=== PATIENT | female | born 1960 | race African-American/Black ===

== ENCOUNTER 2016-09-24 16:44 | Emergency (ER) | payer BC ==
[2016-09-24] MEDS ORDERED: ACETAMINOPHEN 325 MG TABLET PO ONE (18:12)
--- NOTE | 2016-09-24 18:12 | ER Document Report ---
ED Medical Screen (RME) - General Chief Complaint: Chest Congestion Stated Complaint: COUGH Time seen by provider: 18:08 Mode of Arrival: Ambulatory Information source: Patient Notes: 56-year-old female with cough and congestion since Saturday. She had similar illness 1 week ago. Temperature is 100.4 pulses 118 and pulse ox is 96%. lungs clear at triage. I have greeted and performed a rapid initial assessment of this patient. A comprehensive ED assessment, evaluation of the patient, analysis of test results , and completion of the medical decision making process will be conducted by additional ED providers. TRAVEL OUTSIDE OF THE [place] IN LAST 30 DAYS: No - Related Data Allergies/Adverse Reactions: ampicillin [Ampicillin] Allergy (Intermediate, Verified 11/19/12 18:08) Hives latex [Latex] Allergy (Verified 11/19/12 18:08) gives funny feeling adhesive tape [Adhesive Tape] Adverse Reaction (Intermediate, Verified 11/19/12 18:08) rash Past Medical History - Past Medical History Cardiac Medical History: Reports: Hx Hypertension Renal/ Medical History: Denies: Hx Peritoneal Dialysis Past Surgical History: Reports: Hx Bowel Surgery - small bowel resection, Hx Cholecystectomy, Hx HysterectomyComment Only: Hx Abdominal Surgery - hernia repair x 2 - Immunizations Hx Diphtheria, Pertussis, Tetanus Vaccination: No Physical Exam - Vital signs Vitals: Temp Pulse Resp BP Pulse Ox 100.4 F 118 H 18 153/99 H 96 09/24/16 16:54 09/24/16 16:54 09/24/16 16:54 09/24/16 16:54 09/24/16 16:54 Course - Vital Signs Vital signs: Temp Pulse Resp BP Pulse Ox 100.4 F 118 H 18 153/99 H 96 09/24/16 16:54 09/24/16 16:54 09/24/16 16:54 09/24/16 16:54 09/24/16 16:54
--- NOTE | 2016-09-24 19:38 | ER Document Report ---
ED General - General Chief Complaint: Chest Congestion Stated Complaint: COUGH Time seen by provider: 19:33 Mode of Arrival: Ambulatory Information source: Patient Notes: 56-year-old female claims a 2 week history of cough and feels as if it should be productive but she is not able to get anything up. She reports after but a week and half she felt better and then 3 days ago had return of the symptoms. She denies fever, chills, nausea, vomiting, earache, sore throat, chest pain, abdominal pain, back pain, swelling to extremities, or syncope. Physical Exam: General: Alert, appears well. HEENT: Normocephalic. Atraumatic. PERRLA. Extraocular movements intact. Oropharynx clear. Neck: Supple. Non-tender. Respiratory: No respiratory distress. Scattered rhonchi bilateral breath sounds equal no accessory muscle use Cardiovascular: Regular rate and rhythm. Abdominal: Normal Inspection. Soft, non-tender. No guarding rebound rigidity No distension. Normal Bowel Sounds. Back: Non-tender. No deformity or step off. Extremities: Moves all four extremities. Upper extremities: Normal inspection. Non-tender. Normal color. Normal ROM. Normal temperature. Lower extremities: Normal inspection. Non-tender. No edema. Normal color. Normal ROM. Normal temperature. Neurological: Speech clear mentation normal Psychological: Normal affect. Normal Mood. Skin: Warm. Dry. Normal color. TRAVEL OUTSIDE OF THE [place] IN LAST 30 DAYS: No - Related Data Allergies/Adverse Reactions: ampicillin [Ampicillin] Allergy (Intermediate, Verified 11/19/12 18:08) Hives latex [Latex] Allergy (Verified 11/19/12 18:08) gives funny feeling adhesive tape [Adhesive Tape] Adverse Reaction (Intermediate, Verified 11/19/12 18:08) rash Past Medical History - General Information source: Patient - Social History Smoking Status: Never Smoker Chew tobacco use (# tins/day): Yes Family History: Hypertension Patient has suicidal ideation: No Patient has homicidal ideation: No - Past Medical History Cardiac Medical History: Reports: Hx Hypertension Renal/ Medical History: Denies: Hx Peritoneal Dialysis Past Surgical History: Reports: Hx Bowel Surgery - small bowel resection, Hx Cholecystectomy, Hx HysterectomyComment Only: Hx Abdominal Surgery - hernia repair x 2 - Immunizations Hx Diphtheria, Pertussis, Tetanus Vaccination: No Review of Systems - Review of Systems Constitutional: See HPI EENT: denies: Ear pain, Throat pain Cardiovascular: denies: Chest pain Respiratory: See HPI Gastrointestinal: See HPI Genitourinary: denies: Burning, Dysuria Musculoskeletal: denies: Back pain Skin: denies: Rash Hematologic/Lymphatic: denies: Swollen glands Neurological/Psychological: denies: Weakness, Numbness Physical Exam - Vital signs Vitals: Temp Pulse Resp BP Pulse Ox 100.4 F 118 H 18 153/99 H 96 09/24/16 16:54 09/24/16 16:54 09/24/16 16:54 09/24/16 16:54 09/24/16 16:54 Course - Re-evaluation Re-evalutation: 09/24/16 19:35 Patient is a prominent cough I think is consistent with bronchitis others no active drainage evidence for pneumonia. She'll be discharged on Zithromax Z- Brayan. Patient noted be hypertensive and says she is followed by Dr. Kent in the past for that but has not been on medication for blood pressure to about 2 years. I will not treat this now is a believe we need to treat her respiratory illness first but she is instructed follow with Dr. Kent for recheck of this - Vital Signs Vital signs: Temp Pulse Resp BP Pulse Ox 100.4 F 118 H 18 153/99 H 96 09/24/16 16:54 09/24/16 16:54 09/24/16 16:54 09/24/16 16:54 09/24/16 16:54 - Diagnostic Test Radiology reviewed: Image reviewed, Reports reviewed Discharge - Discharge Clinical Impression: Bronchitis Hypertension Qualifiers: Hypertension type: essential hypertension Qualified Code(s): I10 - Essential ( primary) hypertension Condition: Stable Disposition: HOME, SELF-CARE Additional Instructions: High Blood Pressure When your blood pressure was taken today it was elevated. Today's reading was . Pre-hypertension/Hypertension: The patient has been informed that they may have pre-hypertension or Hypertension based on a blood pressure reading in the emergency department. I recommend that the patient call the primary care provider listed on their dischargge instructions or a physician of their choice this wee to arrage follow up for further evaluation of possible pre- hypertension or Hypertension. Sometimes, stress or illness causes a temporary elevation of your blood pressure. We suggest that you get your blood pressure measured three more times during the next few days to see if this is more than a temporary abnormality. If your blood pressure is greater than 150/90 on each occasion, you must have treatment. Some simple things you can do to help are: If you have blood pressure medicine but aren't using it regularly, start taking it again. Get some aerobic exercise for at least 20 minutes on a daily basis. (See your doctor before beginning a new exercise program.) Eat a low-fat diet. Lose excess weight. Avoid salty foods and avoid adding salt to any of the foods you eat. Avoid diet pills, decongestants, "energizing" herbs, and other medicines that elevate blood pressure. If left untreated, hypertension greatly enhances your risk for developing heart disease and strokes. Please don't ignore this problem. Bronchitis You have acute bronchitis. This disease is an infection or inflammation of the air passageways in your lungs. Symptoms usually include cough, low grade fever, shortness of breath, and wheezing. The cough usually persists for a couple of weeks. Most cases of bronchitis get better without antibiotics. We prescribe antibiotics when we believe bacteria are damaging your airways, or if there's high risk the bronchitis will worsen into pneumonia. Increase your fluid intake. A cool mist humidifier may make your lungs more comfortable. An expectorant (cough medicine that loosens phlegm) can help. If you smoke, STOP!!! Recovery from bronchitis can be somewhat slow, but you should see improvement within a day or two. Repeated episodes of bronchitis may result in lung damage -- for example, chronic bronchitis, recurrent pneumonias, or emphysema. Call the doctor if you develop increasing fever, shortness of breath, chest pain, bloody sputum, or otherwise worsen. If you have not improved at all after several days, contact the physician. Prescriptions: Albuterol Sulfate [Proair HFA Inhalation Aerosol 8.5 gm MDI] 2 puff IH Q4H PRN # 1 mdi PRN Reason: Azithromycin [Zithromax 250 mg Tablet] 250 mg PO ASDIR PRN #6 tablet PRN Reason: Referrals: AISHA KENT MD [ACTIVE STAFF] - Follow up in 1 week
[2016-09-24 19:51] VITALS: BP 150/98
== END 2016-09-24 19:44 | disposition home or self-care (01) ==
LOC: ER 16:44
DX: J40 Bronchitis, not specified as acute or chronic (principal); R05 Cough; I10 Essential (primary) hypertension; Z88.0 Allergy status to penicillin; Z91.040 Latex allergy status
CPT/HCPCS: 71020; 99283

== ENCOUNTER 2016-10-31 20:28 | Emergency (ER) | payer BC ==
--- NOTE | 2016-10-31 21:46 | ER Document Report ---
ED Medical Screen (RME) - General Stated Complaint: ABDOMINAL PAIN Notes: 56 yo female c/o vomiting/diarrhea x 2 days, mild abd cramping. no blood or mucus in stool. treated with antibiotics 1 month ago for sinus infection. no fever. pt has hx/o HTN abdomen soft, + epigastric tenderness TRAVEL OUTSIDE OF THE [place] IN LAST 30 DAYS: No - Related Data Allergies/Adverse Reactions: ampicillin [Ampicillin] Allergy (Intermediate, Verified 11/19/12 18:08) Hives latex [Latex] Allergy (Verified 11/19/12 18:08) gives funny feeling adhesive tape [Adhesive Tape] Adverse Reaction (Intermediate, Verified 11/19/12 18:08) rash Past Medical History - Past Medical History Cardiac Medical History: Reports: Hx Hypertension Renal/ Medical History: Denies: Hx Peritoneal Dialysis Past Surgical History: Reports: Hx Bowel Surgery - small bowel resection, Hx Cholecystectomy, Hx HysterectomyComment Only: Hx Abdominal Surgery - hernia repair x 2 - Immunizations Hx Diphtheria, Pertussis, Tetanus Vaccination: No Physical Exam - Vital signs Vitals: Temp Pulse Resp BP Pulse Ox 99.8 F 108 H 16 122/59 L 100 10/31/16 20:42 10/31/16 20:42 10/31/16 20:42 10/31/16 20:42 10/31/16 20:42 Course - Vital Signs Vital signs: Temp Pulse Resp BP Pulse Ox 99.8 F 108 H 16 122/59 L 100 10/31/16 20:42 10/31/16 20:42 10/31/16 20:42 10/31/16 20:42 10/31/16 20:42
[2016-10-31] MEDS ORDERED: ONDANSETRON ODT 4 MG TAB (6 TAB/DSPK) PO PRN (22:02)
[2016-10-31 22:25] LABS: ABSOLUTE EOSINOPHILS # (AUTO) 0.1 10^3/uL (0.0-0.6); ABSOLUTE LYMPHOCYTES (AUTO) 1.2 10^3/uL (0.5-4.7); ABSOLUTE MONOCYTES (AUTO) 0.5 10^3/uL (0.1-1.4); ABSOLUTE NEUT (AUTO) 4.6 10^3/uL (1.7-8.2); BASOPHILS % (AUTO) 0.5 % (0-2); EOSINOPHILS % (AUTO) 1.2 % (0-6); LYMPHOCYTES % (AUTO) 19.4 % (13-45); MEAN CORPUSCULAR HEMOGLOBIN 24.4 pg (27.0-33.4); MEAN CORPUSCULAR HGB CONC 31.6 g/dL (32.0-36.0); MEAN CORPUSCULAR VOLUME 77 fl (80-97); MONOCYTES % (AUTO) 7.8 % (3-13); RED BLOOD COUNT 4.92 10^6/uL (3.72-5.28); RED CELL DISTRIBUTION WIDTH 16.1 % (11.5-14.0); SEGMENTED NEUTROPHILS % (AUTO) 71.1 % (42-78); WHITE BLOOD COUNT 6.4 10^3/uL (4.0-10.5)
[2016-10-31 22:37] LABS: APPEARANCE,URINE CLOUDY; BILIRUBIN,URINE NEGATIVE (NEGATIVE); GLUCOSE, URINE NEGATIVE (NEGATIVE); KETONES,URINE NEGATIVE (NEGATIVE); LEUKOCYTE ESTERASE,URINE NEGATIVE (NEGATIVE); NITRITE,URINE NEGATIVE (NEGATIVE); PROTEIN,URINE 30 mg/dL (NEGATIVE); URINE SPECIFIC GRAVITY 1.025; UROBILINOGEN,URINE NEGATIVE mg/dL (<2.0)
[2016-10-31 22:43] LABS: ALANINE AMINOTRANSFERASE 26 U/L (9-52); ALBUMIN 4.3 g/dL (3.5-5.0); ALKALINE PHOSPHATASE 99 U/L (38-126); ANION GAP 15 (5-19); ASPARTATE AMINO TRANSFERASE 16 U/L (14-36); BILIRUBIN,DIRECT 0.2 mg/dL (0.0-0.4); BILIRUBIN,TOTAL 0.5 mg/dL (0.2-1.3); BLOOD UREA NITROGEN 12 mg/dL (7-20); CARBON DIOXIDE 25 mmol/L (22-30); CHLORIDE 104 mmol/L (98-107); CREATININE RESULT 0.76 mg/dL (0.52-1.25); GLUCOSE 117 mg/dL (75-110); LIPASE 52.5 U/L (23-300); POTASSIUM 3.8 mmol/L (3.6-5.0); SODIUM 144.2 mmol/L (137-145); TOTAL PROTEIN 8.5 g/dL (6.3-8.2)
[2016-11-01] MEDS ORDERED: NORMAL SALINE 1000 ML 1,000 ML IV ONE (02:12)
--- NOTE | 2016-11-01 02:13 | ER Document Report ---
ED GI/ - General Chief Complaint: Nausea/Vomiting/Diarrhea Stated Complaint: ABDOMINAL PAIN Time seen by provider: 02:12 Notes: 56-year-old female that comes emergency department for chief complaint of vomiting and diarrhea for the past 2 days, she has vomited once and she has had about 7 episodes of loose nonbloody diarrhea. She denies fever. She reports cramping in her lower abdomen and some discomfort in her upper abdomen which went away after she was given nausea medication in triage. Patient was on antibiotics within the past few weeks, amoxicillin for sinus infection. Patient has had multiple abdominal surgeries including a benign mass removed from her small bowel, cholecystectomy, hernia repair, hysterectomy. TRAVEL OUTSIDE OF THE [place] IN LAST 30 DAYS: No - Related Data Allergies/Adverse Reactions: ampicillin [Ampicillin] Allergy (Intermediate, Verified 11/19/12 18:08) Hives latex [Latex] Allergy (Verified 11/19/12 18:08) gives funny feeling adhesive tape [Adhesive Tape] Adverse Reaction (Intermediate, Verified 11/19/12 18:08) rash Past Medical History - General Information source: Patient - Social History Smoking Status: Never Smoker Frequency of alcohol use: None Drug Abuse: None Lives with: Family Family History: Hypertension Patient has suicidal ideation: No Patient has homicidal ideation: No - Past Medical History Cardiac Medical History: Reports: Hx Hypertension Renal/ Medical History: Denies: Hx Peritoneal Dialysis Past Surgical History: Reports: Hx Bowel Surgery - small bowel resection, Hx Cholecystectomy, Hx HysterectomyComment Only: Hx Abdominal Surgery - hernia repair x 2 - Immunizations Hx Diphtheria, Pertussis, Tetanus Vaccination: No Review of Systems - Review of Systems Constitutional: No symptoms reported EENT: No symptoms reported Cardiovascular: No symptoms reported Respiratory: No symptoms reported Gastrointestinal: See HPI Genitourinary: No symptoms reported Female Genitourinary: No symptoms reported Musculoskeletal: No symptoms reported Skin: No symptoms reported Hematologic/Lymphatic: No symptoms reported Neurological/Psychological: No symptoms reported Physical Exam - Vital signs Vitals: Temp Pulse Resp BP Pulse Ox 99.8 F 108 H 16 122/59 L 100 10/31/16 20:42 10/31/16 20:42 10/31/16 20:42 10/31/16 20:42 10/31/16 20:42 Interpretation: Normal - General General appearance: Appears well, Alert In distress: None - HEENT Head: Normocephalic, Atraumatic Eyes: Normal Extraocular movements intact: Yes Eyelashes: Normal Pupils: PERRL Mouth/Lips: Normal Mucous membranes: Normal - Not remarkably dry Pharynx: Normal Neck: Normal - Respiratory Respiratory status: No respiratory distress Chest status: Nontender Breath sounds: Normal. No: Decreased air movement, Wheezing Chest palpation: Normal - Cardiovascular Rhythm: Regular, Tachycardia - borderline Heart sounds: Normal auscultation, S1 appreciated, S2 appreciated Murmur: No - Abdominal Inspection: Normal Distension: No distension Bowel sounds: Normal Tenderness: Tender - Very mild and generalized tenderness, nonspecific, no guarding, no distention or rigidity Organomegaly: No organomegaly - Back Back: Normal, Nontender. No: Tender - Extremities General upper extremity: Normal inspection, Nontender, Normal ROM, Normal strength General lower extremity: Normal inspection, Nontender, Normal ROM, Normal strength - Neurological Neuro grossly intact: Yes Cognition: Normal Orientation: AAOx4 Raheem Coma Scale Eye Opening: Spontaneous Dexter Coma Scale Verbal: Oriented Raheem Coma Scale Motor: Obeys Commands Dexter Coma Scale Total: 15 Speech: Normal Cranial nerves: Normal Cerebellar coordination: Normal Motor strength normal: LUE, RUE, LLE, RLE Additional motor exam normals: Equal audiometrist Sensory: Normal - Psychological Associated symptoms: Normal affect, Normal mood - Skin Skin Temperature: Warm Skin Moisture: Dry Skin Color: Normal Course - Re-evaluation Re-evalutation: CBC, chemistry generally unremarkable, urinalysis nonspecific. Patient's abdomen with only mild generalized tenderness, not an acute abdomen. No CVA tenderness. Patient is well appearing on examination. Patient was given hydration with IV fluids, after this tachycardia resolved, patient was able to provide a stool sample, no white blood cells or blood in stool, C. difficile is negative. Suspect this is viral, low suspicion of diverticulitis or other infectious bacterial etiology based on exam and workup, patient provided with nausea medication and after this was able to tolerate fluids, states she feels good. Discussed primary care follow-up, return precautions, patient states understanding and agreement. - Vital Signs Vital signs: Temp Pulse Resp BP Pulse Ox 98.3 F 82 18 124/64 98 11/01/16 06:14 11/01/16 06:14 11/01/16 06:14 11/01/16 06:14 03/23/17 06:14 - Laboratory Result Diagrams: 10/31/16 22:00 10/31/16 22:00 Laboratory results interpreted by me: 10/31/16 10/31/16 10/31/16 22:00 22:00 22:00 MCV 77 L MCH 24.4 L MCHC 31.6 L RDW 16.1 H Glucose 117 H Total Protein 8.5 H Urine Protein 30 H Discharge - Discharge Clinical Impression: Nausea vomiting and diarrhea Condition: Stable Disposition: HOME, SELF-CARE Additional Instructions: Examination and workup did not indicate a surgical or other abnormality at this time. Take the nausea medication as prescribed, drink plenty of fluids, rest. Follow-up with her primary care provider within the next several days. Return to the emergency department for any concerning or worsening symptoms including fever, severe abdominal pain, bloody bowel movements, uncontrolled vomiting, etc. Prescriptions: Ondansetron [Zofran Odt 4 mg Tablet] 1 - 2 tab PO Q4H PRN #15 tab.rapdis PRN Reason: For Nausea/Vomiting Forms: Return to Work
[2016-11-01] MEDS ORDERED: ONDANSETRON ODT 4 MG TAB (6 TAB/DSPK) PO PRN (05:40)
[2016-11-01] MEDS ORDERED: HYDROCODONE/ACETAMINOPHEN 5-325 MG 6 TAB/DSPK PO PRN (05:40)
[2016-11-01 06:15] VITALS: BP 124/64
== END 2016-11-01 06:32 | disposition home or self-care (01) ==
LOC: ER 20:28
DX: R11.2 Nausea with vomiting, unspecified (principal); R19.7 Diarrhea, unspecified; R10.30 Lower abdominal pain, unspecified; R10.817 Generalized abdominal tenderness; I10 Essential (primary) hypertension; Z90.49 Acquired absence of other specified parts of digestive tract; Z90.710 Acquired absence of both cervix and uterus; Z98.890 Other specified postprocedural states; Z88.0 Allergy status to penicillin; Z91.040 Latex allergy status
CPT/HCPCS: 99283; 96360; 36415; 87045; 89055; 87205; 83690; 85025; 82272; 80053; 81001; 87493 ×2; J7030